=== PATIENT | male | born 1990 | race Caucasian/White ===

== ENCOUNTER 2020-04-20 11:23 | Emergency (ER) | payer SELFPAY ==
[2020-04-20 11:40] VITALS: BP 152/108; PULSE 85; RESP 16; TEMP 36.5; O2SAT 98; BMI 21.5
--- NOTE | 2020-04-20 12:54 | W.ED.ABDPA2 ---
HPI - Abdominal Pain General: Chief Complaint: Abdominal Pain Stated Complaint: ABD PAIN Time Seen by Provider: 04/20/20 12:54 Source: patient Mode of arrival: ambulatory Limitations: no limitations History of Present Illness: HPI narrative: Patient comes in today with left-sided flank pain radiating into the abdomen. Patient reports that the pain started yesterday about hour after he completed mowing the lawn. Patient does report some renal problems when he was younger but has not had problems in a long time. Patient reports some vomiting when the pain was at its worst. Patient appears mildly unwell. Patient appears in moderate pain. MD elicited complaint: flank pain Pertinent past history: kidney stones Review of Systems General: Reports: 10 or more systems reviewed and unremarkable except in HPI and below : Reports: flank pain PFSH ED PFSH: Social History Smoking and tobacco status: never smoked Physical Exam Const: COMMON NORMALS: no acute distress and patient oriented x3 GENERAL APPEARANCE: cooperative HENMT: COMMON NORMALS: normocephalic and Normal external nose present HEAD & SCALP: normal to inspection and normocephalic NOSE: Normal external nose present MOUTH: Normal oral and palatal mucosa present THROAT: posterior oropharynx normal Eye: GENERAL EYE: appearance normal, both eyes and all related structures Neck/C-Spine: COMMON NORMALS: full ROM Lymph: LYMPHATIC: no lymphadenopathy noted Chest: COMMONS NORMALS: normal inspection of the chest Resp: COMMON NORMALS: normal respiratory effort EFFORT & INSPECTION: Yes able to speak in complete sentences Cardio: COMMON NORMALS: regular rate and regular rhythm RATE: regular rate RHYTHM: regular rhythm GI: COMMON NORMALS: Soft to palpation AUSCULTATION: Yes normoactive bowel sounds PALPATION: Yes Soft to palpation and Yes Tenderness to palpation present (GI) Details: LUQ : BLADDER/KIDNEY EXAM: Yes CVA tenderness on the left Back/Pelvis: COMMON NORMALS: thoracic and lumbar spine normal to inspection GENERAL BACK: Yes CVA tenderness Extremity: COMMON NORMALS: normal to inspection Neuro: COMMON NORMALS: patient oriented x3 and moves all extremities Psych: COMMON NORMALS: mental status grossly normal and cooperative Skin: COMMON NORMALS: no rashes or lesions noted GENERAL SKIN EXAM: no rashes or lesions noted Course Vital Signs: Vital signs: Vital Signs Temperature 97.7 F 04/20/20 11:40 Pulse Rate 85 04/20/20 11:40 Respiratory Rate 16 04/20/20 14:48 Blood Pressure 152/108 04/20/20 11:40 Pulse Oximetry 98 04/20/20 11:40 MDM - Abdominal Pain MDM Narrative: Medical decision making narrative: Patient comes in today with complaints of left flank pain. On exam we have CVA tenderness. Left upper abdominal tenderness. Bowel sounds are present. Vital signs are normal except for some mild hypertension. Differential diagnosis includes gastritis, pancreatitis, renal calculi. Laboratory values noted blood in the urine, mild elevation in leukocytes, normal kidney function. CT scan of the abdomen pelvis noted a 7 mm stone mid ureter on the left side. Patient was given medication for pain. Patient was recommended to continue with medications at home and drink plenty of fluids. Recommend patient to follow-up with urology. Appointment was made for tomorrow morning at [address] Dyson's office after x-ray done in the hospital. Patient reports understanding agreed to plan. Lab Data: Labs: Lab Results 04/20/20 04/20/20 04/20/20 Range/Units 12:52 13:30 13:30 WBC 13.6 H (4.0-10.0) 10^3/ uL RBC 4.94 (4.1-5.3) 10^6/u L Hgb 15.3 (11.7-16.6) g/dL Hct 44.8 (42.0-52.0) % MCV 90.7 (80-94) fL MCH 31.0 (28.0-34.0) pg MCHC 34.2 (30.0-36.0) g/dL RDW 11.6 L (12.1-15.1) % Plt Count 275 (130-400) 10^3/c mm MPV 9.7 (7.4-10.4) fL Neut % (Auto) 86.6 % Lymph % (Auto) 7.4 % [place] % (Auto) 5.6 % Eos % (Auto) 0.1 % Baso % (Auto) 0.1 % Neut # (Auto) 11.8 H (1.8-7.7) 10^3/u L Lymph # (Auto) 1.0 (0.8-4.8) 10^3/u L [place] # (Auto) 0.8 (0.2-0.9) 10^3/u L Eos # (Auto) 0.0 (0.0-0.8) 10^3/u L Baso # (Auto) 0.0 (0.0-0.1) 10^3/u L Nucleated RBC % (a uto) 0 % Nucleated RBCs # 0.0 /100WBC Sodium 138 (136-145) mmol/L Potassium 4.0 (3.5-5.1) mmol/L Chloride 100 (98-107) mmol/L Carbon Dioxide 25 (22-29) mmol/L Anion Gap 17.0 (5-19) BUN 11 (6-20) mg/dL Creatinine 1.1 (0.7-1.2) mg/dL GFR Calculation 79.1 L (90-130) mL/min Glucose 120 H (65-115) mg/dL Calculated Osmolal ity 283 L (285-295) mOsm/k g Calcium 9.6 (8.5-10.5) mg/dL Total Bilirubin 0.6 (0.15-1.2) mg/dL AST 21 (0-40) U/L ALT 37 (0-41) U/L Alkaline Phosphata se 101 (40-130) IU/L Total Protein 7.9 (6.6-8.7) g/dL Albumin 4.8 (3.5-5.2) g/dL Globulin 3.1 (1.3-4.6) g/dL Lipase 24 (13-60) U/L Urine Color Yellow (Yellow) Urine Appearance Clear (CLEAR) Urine pH 6 (5-7) Ur Specific Gravit y 1.020 (1.005-1.030) Urine Protein Neg (Negative) Urine Glucose (UA) Norm (Normal) Urine Ketones Negative (Negative) Urine Blood 3+ H (Negative) Urine Nitrate Negative (Negative) Urine Bilirubin Neg (NEGATIVE) Urine Urobilinogen 1 H (Negative) mg/dL Ur Leukocyte Delia ase Negative (Negative) Urine RBC 25-40 H (0-2) /hpf Urine WBC 0-4 H (0-5) /hpf Ur Squamous Epith Cells None (0-5) Amorphous Sediment Not Reportable Urine Bacteria 1+ H (NONE) Urine Mucus 2+ Discharge Plan Discharge Patient Disposition: Home, Self-Care Clinical Impression: Calculus of kidney Condition: Stable Prescriptions: New hydrocodone-acetaminophen 5-325 mg tablet 1 tab PO Q4H PRN (Reason: pain) Qty: 20 RF: 0 ondansetron HCl 4 mg tablet 4 mg PO Q8H PRN (Reason: nausea and vomiting) Qty: 10 RF: 0 tamsulosin 0.4 mg capsule 0.4 mg PO DAILY Qty: 10 RF: 0 Discharge Orders: Discharge Order (Routine); Ordered 04/20/20 Ordered By: Jude Simmons Discharge Diet: Usual diet Discharge Activity: Increase activity as tolerated Patient Instructions: Kidney Stones (ED) Activity Restrictions/Additional Instructions: Drink plenty of water. Activity as tolerated. Medications as directed for pain. Follow-up with Dr. Dyson's office next week for reevaluation and further treatment of kidney stone. Return to the ER for uncontrolled pain or high fever. Stand Alone Forms: Work/School Release Coding Level of Care Code ED [employer] for [employer] Fwd Exam Comprehensive
--- NOTE | 2020-04-20 13:06 | CTR_ITS ---
PROCEDURE INFORMATION: Exam: CT Abdomen And Pelvis Without Contrast Exam date and time: 04/20/2020 1:31 PM Age: 29 years old Clinical indication: Abdominal pain; Left lower quadrant (llq); Patient HX: Left flank pain since yesterday, history of renal stones TECHNIQUE: Imaging protocol: Computed tomography of the abdomen and pelvis without contrast. Radiation optimization: All CT scans at this facility use at least one of these dose optimization techniques: automated exposure control; mA and/or kV adjustment per patient size (includes targeted exams where dose is matched to clinical indication); or iterative reconstruction. COMPARISON: No relevant prior studies available. RADIATION DOSE METRICS: Total DLP (mGy-cm): 836.02 FINDINGS: Liver: Normal. No mass. Gallbladder and bile ducts: Normal. No calcified stones. No ductal dilation. Pancreas: Normal. No ductal dilation. Spleen: Normal. No splenomegaly. Adrenals: Normal. No mass. Kidneys and ureters: Bilateral nonobstructing renal calyceal stones. 7 mm left UPJ stone with mild to moderate left hydronephrosis. Stomach and bowel: Mild colonic diverticulosis. Appendix: Normal appendix. Intraperitoneal space: Unremarkable. No free air. No significant fluid collection. Vasculature: Unremarkable. No abdominal aortic aneurysm. Lymph nodes: Unremarkable. No enlarged lymph nodes. Bladder: Unremarkable as visualized. Reproductive: Unremarkable as visualized. Bones/joints: Posterior central L5-S1 disc protrusion with posterior osteophytes. Soft tissues: Unremarkable. CT/CT kidney stone [id number] IMPRESSION: 7 mm left UPJ stone with mild to moderate left hydronephrosis. Radiation Dose CTDIVOL = (mGy): DLP = 836.02 (mGy-cm)
[2020-04-20 13:34] LABS: Add Urine Microscopic? YES; Bilirubin Urine Neg (NEGATIVE); Blood Urine 3+ (Negative); Glucose Urine UA Norm (Normal); Ketones Urine Negative (Negative); Leukocyte Esterase Urine Negative (Negative); Nitrate Urine Negative (Negative); Protein Urine Neg (Negative); Urine Appearance Clear (CLEAR); Urine Color Yellow (Yellow); Urobilinogen Urine 1 mg/dL (Negative); pH Urine 6 (5-7)
[2020-04-20 13:35] LABS: Add Urine Culture? Yes; Bacteria Urine 1+; Mucus Urine 2+; RBC Urine 25-40 /hpf (0-2); WBC Urine 0-4 /hpf (0-5)
[2020-04-20 13:36] VITALS: RESP 18
[2020-04-20] MEDS: morphine 4 mg/mL SDV 1 mL 2 MG IVP (13:36)
[2020-04-20] MEDS: ondansetron 2 mg/ML SDV 2 mL 4 MG IVP (13:36)
[2020-04-20] MEDS: ketorolac 30 mg/mL INJ 15 MG IVP (13:36)
[2020-04-20 13:39] LABS: Basophils % 0.1 %; Eosinophils % 0.1 %; Hematocrit 44.8 % (42.0-52.0); Hemoglobin 15.3 g/dL (11.7-16.6); Lymphocytes % 7.4 %; Mean Corpuscular HGB Conc 34.2 g/dL (30.0-36.0); Mean Corpuscular Volume 90.7 fL (80-94); Mean Platelet Volume 9.7 fL (7.4-10.4); Monocytes # 0.8 10^3/uL (0.2-0.9); Monocytes % 5.6 %; Neutrophils # 11.8 10^3/uL (1.8-7.7); Neutrophils % 86.6 %; Nucleated Red Blood Cells % 0 %; Platelet Count 275 10^3/cmm (130-400); Red Blood Count 4.94 10^6/uL (4.1-5.3); Red Cell Distribution Width 11.6 % (12.1-15.1); White Blood Count 13.6 10^3/uL (4.0-10.0)
--- NOTE | 2020-04-20 13:50 | PC.NURSE ---
Pt to CT
[2020-04-20 13:55] LABS: Alanine Aminotransferase 37 U/L (0-41); Albumin Level 4.8 g/dL (3.5-5.2); Alkaline Phosphatase 101 IU/L (40-130); Aspartate Amino Transferase 21 U/L (0-40); Blood Urea Nitrogen 11 mg/dL (6-20); Calcium 9.6 mg/dL (8.5-10.5); Carbon Dioxide 25 mmol/L (22-29); Chloride 100 mmol/L (98-107); Globulin 3.1 g/dL (1.3-4.6); Glomerular Filtration Rate 79.1 mL/min (90-130); Glucose 120 mg/dL (65-115); Lipase 24 U/L (13-60); Osmolality Calculated 283 mOsm/kg (285-295); Sodium 138 mmol/L (136-145); Total Bilirubin 0.6 mg/dL (0.15-1.2); Total Protein 7.9 g/dL (6.6-8.7)
[2020-04-20] MEDS: sodium chloride 0.9% 500 ML 999 ML IV (14:12)
--- NOTE | 2020-04-20 14:29 | PC.NURSE ---
Patient is tolerating IV fluids at this time. No other distress noted, call light in reach and patient verbalizes understanding of use.
--- NOTE | 2020-04-20 14:45 | DCPLANNER ---
manager dairy was asked to schedule a follow up appointment for patient with Dr. Dyson. manager dairy called the office of Dr. Dyson, spoke with Naomi, gave clinic patients information. manager dairy was told that patients information would be printed and reviewed. A follow up appointment is scheduled for Friday, April 21, 2020 at 7:15 for x ray, then patient is to go to Dr. Rothman office. manager dairy informed patient of the scheduled appointment.
[2020-04-20 14:48] VITALS: RESP 16
[2020-04-20] MEDS: morphine 4 mg/mL SDV 1 mL IVP (14:48)
[2020-04-20 15:12] VITALS: BP 112/73; PULSE 86; RESP 18; TEMP 37; O2SAT 98
--- NOTE | 2020-04-26 14:58 | DCPLANNER ---
Patient did attend appointment scheduled for 04.21.[address] Dyson.
== END 2020-04-20 15:15 | disposition home or self-care (01) ==
PROVIDERS: Emergency Provider Nurse Practitioner Family
DX: N20.0 Calculus of kidney (principal)
CPT/HCPCS: 12345; 74176; 80053; 81001; 83690; 85025; 87086; 96374; 96375; 96376; 99283; J1885; J2270; J2405; J7040

== ENCOUNTER 2020-04-21 | Outpatient (CLI) | payer SELFPAY | END 2020-04-21 23:00 | disposition home or self-care (01) | LOC: RAD 06-20 13:02 | PROVIDERS: Visit Provider Urology | DX: N20.0 Calculus of kidney (principal) | CPT/HCPCS: 81001 ==

== ENCOUNTER 2020-04-27 08:25 | Outpatient (CLI) | payer SELFPAY ==
--- NOTE | 2020-04-27 08:54 | XRR_ITS ---
PROCEDURE INFORMATION: Exam: XR Abdomen, 1 View Exam date and time: 04/27/2020 9:03 AM Age: 29 years old Clinical indication: Condition or disease; Kidney or ureter condition; Calculus (stone) in kidney; Patient HX: Stone followup. Previous CT 04/20/20. Previous XR 04/21/20; Additional info: Stones TECHNIQUE: Imaging protocol: XR of the abdomen. Views: Frontal supine view of the abdomen. 1 View. COMPARISON: CR - XR KUB [id number] 04/21/2020 8:39:[address] kidney stone [id number] 04/20/2020 1:45:50 PM FINDINGS: Gastrointestinal tract: Moderate fecal material in the colon particularly in the ascending and transverse colon. No bowel obstruction. Organs: Both kidneys are obscured by fecal material. Left abdominal calcification seen previously overlies the left sacrum. Bones/joints: No acute findings. XR/XR KUB [id number] IMPRESSION: Distal migration of the left ureteral calculus, now located in the mid pelvis.
== END 2020-04-27 08:26 | disposition home or self-care (01) ==
PROVIDERS: Visit Provider Urology
DX: N20.0 Calculus of kidney (principal); N20.1 Calculus of ureter
CPT/HCPCS: 74018